=== PATIENT | male | born 1960 ===

== ENCOUNTER 2024-07-23 14:14 | Outpatient (OUT) | payer MEDICAID, SELFPAY ==
--- NOTE | 2024-07-23 | XR_ITS ---
The [address] [address] Patient Name: CARMEN MELLO MRN: [id number] date: 1960 Sex: M Assigned Patient Location: Current Patient Location: Accession/Order Number: [id number] Exam Date: 07/23/2024 14:28 Report Date: 07/26/2024 07:54 At the request of: NEVAEH WHYTE Procedure: XR ankle LT min 3V PROCEDURE: XR ankle LT min 3V COMPARISON: None. HISTORY: LEFT ANKLE PAIN FINDINGS: BONES:Moderate to severe enthesopathic spurring of the calcaneus at the Achilles and plantar insertions. No acute fracture or dislocation. Mild degenerative changes marginal osteophyte formation SOFT TISSUES:Negative. No visible soft tissue swelling. EFFUSION:None visible. OTHER: Negative. XR/XR ankle LT min 3V IMPRESSION: Enthesopathic spurring of the calcaneus Electronically authenticated by: YANN SMITH Date: 07/26/2024 07:54
== END 2024-07-23 14:15 | disposition home or self-care (01) ==
PROVIDERS: Visit Provider Physician Assistant
DX: M25.572 Pain in left ankle and joints of left foot (principal); M77.32 Calcaneal spur, left foot
CPT/HCPCS: 73610